=== PATIENT | female | born 1985 | race Caucasian/White ===

== ENCOUNTER 2019-06-30 21:56 | Emergency (ER) | payer OTHER ==
[~2019-06-30] VITALS: Ht 167.6 cm; Wt 79.5 kg
[2019-06-30 22:05] VITALS: TEMP 98.5
[2019-06-30 22:54] LABS: BASO # 0.1 (0.0-0.2); BASO % 0.7 % (0.0-2.0); EOS # 0.3 (0.0-0.7); EOS % 2.5 % (0-4.0); GRAN # 6.2 (1.4-6.5); GRAN % 59.7 % (42.2-75.2); HEMATOCRIT 39.1 % (37.0-47.0); HEMOGLOBIN 12.6 g/dl (12.5-16.0); LYMPH # 2.9 (1.2-3.4); LYMPH % 28.5 % (20.0-51.0); MEAN CELL VOLUME 90 fl (80.0-100.0); MEAN CORPUSCULAR HEMOGLOBIN 29 pg (27.0-31.0); MEAN CORPUSCULAR HGB CONC 32 g/dl (33.0-37.0); MEAN PLATELET VOLUME 9.8 fl (7.4-10.4); MONO # 0.8 (0.1-0.6); MONO % 8.2 % (1.7-9.3); PLATELET COUNT 257 K/mm3 (130-400); RED BLOOD COUNT 4.37 M/mm3 (4.10-5.30); REDCELL DISTRIBUTION WIDTH-CV 13.2 % (11.5-14.5)
[2019-06-30 23:04] LABS: ALANINE AMINOTRANSFERASE 16 U/L (9-52); ALBUMIN 4.1 gm/dL (3.5-5.0); ALKALINE PHOSPHATASE 71 U/L (50-136); ANION GAP 6 mmol/L (7-16); AST,SGOT 28 U/L (15-37); BILIRUBIN,TOTAL 0.1 mg/dL (0.0-1.0); BLOOD UREA NITROGEN 11 mg/dL (7-17); CALCIUM 8.9 mg/dL (8.4-10.2); CARBON DIOXIDE 24 mmol/L (22-30); CHLORIDE 107 mmol/L (98-107); GLUCOSE 93 mg/dL (74-106); SODIUM 137 mmol/L (137-145); TOTAL PROTEIN 7.1 gm/dL (6.4-8.2)
[2019-06-30 23:15] LABS: TROPONIN-I < 0.012 ng/mL (0.000-0.035)
[2019-06-30 23:48] VITALS: BP 132/93; PULSE 59
== END 2019-06-30 23:48 | disposition home or self-care (01) ==
LOC: COL.ER 21:56
PROVIDERS: Emergency Medicine
DX: R00.2 Palpitations (principal); R53.1 Weakness; R20.2 Paresthesia of skin; R07.89 Other chest pain; F17.210 Nicotine dependence, cigarettes, uncomplicated